=== PATIENT | male | born 1945 | race Caucasian/White ===

== ENCOUNTER 2020-03-07 23:41 | Inpatient (IN) | payer MEDICAID, MEDICARE ==
[2020-03-08 00:09] LABS: #Lymphocytes 1.2 thou/uL (1.20-3.40); #Monocytes 0.4 thou/uL (0.11-0.59); #Neutrophils 8.8 thou/uL (1.40-6.50); %Basophils 0.1 % (0.0-1.0); %Eosinophils 0.2 % (0.0-10.0); %Lymphocytes 11.7 % (21.0-51.0); %Monocytes 3.7 % (0.0-10.0); %Neutrophils 84.3 % (42.0-75.0); Hemoglobin 13.5 g/dL (14.0-18.0); Mean Corpuscular Hemoglobin 27.7 pg (27.0-31.0); Mean Corpuscular Volume 79.2 fL (78.0-98.0); Mean Platelet Volume 9.6 fL (7.4-10.4); Platelet Count 196 thou/uL (130-400); RBC Distribution Width 17.7 % (11.5-14.5); Red Blood Cell (RBC) Count 4.86 mill/uL (4.70-6.10); White Blood Cell (WBC) Count 10.5 thou/uL (4.8-10.8)
[2020-03-08 00:30] LABS: ALT (SGPT) 35 U/L (8-55); AST (SGOT) 49 U/L (5-34); Albumin 4.8 g/dL (3.4-4.8); Alkaline Phosphatase 69 U/L (40-110); Anion Gap 29 mmol/L (10-20); BUN (Urea Nitrogen) 26 mg/dL (8.4-25.7); Bilirubin, Total 0.5 mg/dL (0.2-1.2); Calc. Creatinine Clearance 0 mL/min (70-130); Calcium 10.2 mg/dL (7.8-10.44); Carbon Dioxide 13 mmol/L (23-31); Chloride 103 mmol/L (98-107); Estimated GFR-MDRD 30; Globulin 3.6 g/dL (2.4-3.5); Glucose 153 mg/dL (83-110); Potassium 6.3 mmol/L (3.5-5.1); Protein, Total 8.4 g/dL (5.8-8.1); Sodium 139 mmol/L (136-145)
[2020-03-08 00:43] LABS: Bilirubin Negative (Negative); Blood, Urine Negative (Negative); Clarity Clear (Clear); Glucose, Urine (Dipstick) Normal (Negative); Ketone, Urine Negative (Negative); Leukocyte Negative Leu/uL (Negative); Nitrite Negative (Negative); Protein, Urine (Dipstick) 20 mg/dL (Neg-Trace); Specific Gravity, Urine 1.018 (1.002-1.036); Urobilinogen Normal mg/dL (Less than 2)
[2020-03-08 02:31] LABS: Anion Gap 15 mmol/L (10-20); BUN (Urea Nitrogen) 27 mg/dL (8.4-25.7); Calc. Creatinine Clearance 0 mL/min (70-130); Calcium 9.3 mg/dL (7.8-10.44); Carbon Dioxide 23 mmol/L (23-31); Chloride 106 mmol/L (98-107); Estimated GFR-MDRD 38; Glucose 104 mg/dL (83-110); Potassium 5.1 mmol/L (3.5-5.1); Sodium 139 mmol/L (136-145)
[2020-03-08 03:59] VITALS: BMI 32.6
[2020-03-08] MEDS ORDERED: WATER IVPB SCH (04:00)
[2020-03-08] MEDS ORDERED: ACETYLCYSTEINE IVPB SCH (04:00)
[2020-03-08] MEDS ORDERED: DEXTROSE 5% IVPB SCH (04:00)
[2020-03-08] MEDS ORDERED: WATER IV SCH ×3 (04:30→09:30)
[2020-03-08] MEDS ORDERED: ACETYLCYSTEINE IV SCH ×3 (04:30→09:30)
[2020-03-08] MEDS ORDERED: DEXTROSE 5% IV SCH ×3 (04:30→09:30)
--- NOTE | 2020-03-08 04:43 | PDOC.FPRHP ---
- History of Present Illness Chief Complaint: AMS History of Present Illness: Patient is a 74 year old male with hx of HTN, CHF, CAD, seziures, opiod dependence and muscle spasms who presented to the ED via EMS from [facility] for AMS. Information was obtained from EMS and the patient's son. The patient reportedly fell this afternoon and EMS was called. He was found to be A&Ox4 with diaphoresis noted. Vital signs stable. Patient refused to be taken to the hospital. Around dinnertime, the patient was found to be confused and only knowing his name. EMS was called again and brought the patient to the ED. The son states he found empty pill boxes indicating the patient took all his home medications for the next 5 days. They are: Eliquis 2.5mg x 6, Duloxetine 60mg x 3, Tamsulosin 0.4mg x 3, Tylenol 500mg x 12, Baclofen 20mg x 18, Tizanidine 4mg x 3, Metoprolol 50mg x 6, Lasix 20mg x 3. Patient has a prior suicide attempt in 2018 via overdosing on his medications. Attempted to call [facility] for more information but was unable to speak with them. ED Course: The patient received 1L NS in the ED. Vital signs remained stable. Patient did not require supplemental oxygen. - Allergies/Adverse Reactions Allergies Allergy/AdvReac Type Severity Reaction Status Date / Time Penicillins Allergy Verified 11/28/19 14:25 - Home Medications Medication Instructions Recorded Confirmed Type Metoprolol Succinate 50 mg PO BID 03/25/17 03/08/20 History Apixaban [Eliquis] 2.5 mg PO DAILY 07/06/17 03/08/20 History HYDROcodone Bit/APAP 10/325 [[place]] 1 tab PO Q6H PRN tab 09/13/17 03/08/20 Rx Baclofen 40 mg PO TID PRN 03/08/20 03/08/20 History DULoxetine [Cymbalta] 60 mg PO DAILY 03/08/20 03/08/20 History Furosemide [Lasix] 20 mg PO DAILY 03/08/20 03/08/20 History Tamsulosin HCl [Flomax] 0.4 mg PO DAILY 03/08/20 03/08/20 History tiZANidine HCl [Tizanidine HCl] 4 mg PO HS PRN 03/08/20 03/08/20 History - History PMHx: HTN, CHF, CAD, seizures, opioid dependence, muscle spasms, chronic neck pain, chronic back pain, depression, hx suicide attempt via overdose (per chart review) PSHx: colon resection FHx: Unknown Social: Unknown - Review of Systems ROS unobtainable: due to mental status - Vital signs BP: [124/76] HR: [93] RR: [16] Tmax: [98.4] Pox: [97]% on [RA] Wt: [114.89kg] - Physical Exam Constitutional: NAD HEENT: normocephalic and atraumatic, PERRLA, MMM Neck: supple, trachea midline Chest: no lesions Heart: RRR, normal S1/S2, no murmurs/rubs/gallops, pulses present, no edema Lungs: CTAB, no respiratory distress, good air movement, no wheezing Abdomen: soft, bowel sounds present Musculoskeletal: normal structure, ROM grossly normal -Neurological: Sleepy but arousable. Repeats "ok" when asked questions. A&O x 0 Skin: no rash/lesions, no jaundice Heme/Lymphatic: no unusual bruising or bleeding, no purpura, no petechia FMR H&P: Results - Labs Result Diagrams: 03/08/20 15:06 03/08/20 15:06 Lab results: WBC 10.5 thou/uL (4.8-10.8) 03/07/20 23:48 Hgb 13.5 g/dL (14.0-18.0) L 03/07/20 23:48 Hct 38.5 % (42.0-52.0) L 03/07/20 23:48 MCV 79.2 fL (78.0-98.0) 03/07/20 23:48 Plt Count 196 thou/uL (130-400) 03/07/20 23:48 Neutrophils % 84.3 % (42.0-75.0) H 03/07/20 23:48 Sodium 139 mmol/L (136-145) 03/08/20 02:02 Potassium 5.1 mmol/L (3.5-5.1) 03/08/20 02:02 Chloride 106 mmol/L (98-107) 03/08/20 02:02 Carbon Dioxide 23 mmol/L (23-31) 03/08/20 02:02 BUN 27 mg/dL (8.4-25.7) H 03/08/20 02:02 Creatinine 1.75 mg/dL (0.7-1.3) H 03/08/20 02:02 Glucose 104 mg/dL (83-110) 03/08/20 02:02 Calcium 9.3 mg/dL (7.8-10.44) 03/08/20 02:02 Total Bilirubin 0.5 mg/dL (0.2-1.2) 03/07/20 23:48 AST 49 U/L (5-34) H 03/07/20 23:48 ALT 35 U/L (8-55) 03/07/20 23:48 Alkaline Phosphatase 69 U/L (40-110) 03/07/20 23:48 Serum Total Protein 8.4 g/dL (5.8-8.1) H 03/07/20 23:48 Albumin 4.8 g/dL (3.4-4.8) 03/07/20 23:48 Urine Ketones Negative mg/dL (Negative) 03/08/20 00:28 Urine Blood Negative (Negative) 03/08/20 00:28 Urine Nitrite Negative (Negative) 03/08/20 00:28 Ur Leukocyte Esterase Negative Edna/uL (Negative) 03/08/20 00:28 FMR H&P: A/P - Problem List (1) Hyperkalemia Current Visit: Yes Status: Acute Code(s): E87.5 - HYPERKALEMIA (2) KENDELL (acute kidney injury) Current Visit: Yes Status: Resolved Code(s): N17.9 - ACUTE KIDNEY FAILURE, UNSPECIFIED (3) Encephalopathy acute Current Visit: Yes Status: Resolved Code(s): G93.40 - ENCEPHALOPATHY, UNSPECIFIED (4) Seizure disorder Current Visit: Yes Status: Acute Code(s): G40.909 - EPILEPSY, UNSP, NOT INTRACTABLE, WITHOUT STATUS EPILEPTICUS (5) Muscle spasm Current Visit: Yes Status: Acute Code(s): M62.838 - OTHER MUSCLE SPASM (6) Opioid dependence Current Visit: Yes Status: Acute Code(s): F11.20 - OPIOID DEPENDENCE, UNCOMPLICATED (7) Depression Current Visit: No Status: Acute Code(s): F32.9 - MAJOR DEPRESSIVE DISORDER, SINGLE EPISODE, UNSPECIFIED (8) Diastolic congestive heart failure Current Visit: No Status: Acute Code(s): I50.30 - UNSPECIFIED DIASTOLIC ( CONGESTIVE) HEART FAILURE (9) Hypertension Current Visit: No Status: Chronic Code(s): I10 - ESSENTIAL (PRIMARY) HYPERTENSION - Plan 1. Acute metabolic encephalopathy 2/2 medication overdose Cause of overdose is likely intentional given the large quantity of medications taken and past history of suicide attempt via medication overdose. Patient has no reported history of dementia. Vital signs have remained stable. 1 L NS administered in the ED. Spoke with poison control regarding treatment recommendations. Will admit to tele inpatient. -Acetaminophen level -INR level -F/u repeat EKG -Vitals Q4H -Follow NAC protocol per pharmacy -Suicide precautions with sitter -[facility] evaluation when AMS improves -Hold all home meds 2. Acute kidney injury Creatinine initially 2.19. Improved to 1.75 after 1L NS. -F/u repeat CMP 3. Hyperkalemia K+ was initially 6.3, possibly related to hemolysis. Improved to 5.1 after 1L NS. -Resolved 4. HTN BP have remained stable. -Hold home medications 5. CAD -Hold home medications 6. CHF Caution with fluid resuscitation due to potential of fluid overload -Hold home medications 7. Seizure disorder -Hold home medication 8. Depression -Hold home medication 9. Muscle spasms -Hold home medication Code: Full PCP: [facility] Prophylaxis: SCDs Disposition: telemetry, inpatient FMR H&P: Upper Level - Plan Date/Time: 03/08/20 0432 Chris Ivey DO, have evaluated this patient and agree with findings/plan as outlined by [facility]. Pertinent changes/additions are listed here. 74 yo m w pmhx sig for htn, chf, depression At the time of our examination, pt is arousable to verbal stimulation, obeys commands, but is AOx0. Reports from the assisted living facility indicate he may have taken 5 days worth of his meds in an apparent overdose attempt, pt has apparently done this previously. Reportedly at his baseline AOx4 when he was seen earlier this evening. In the ED he was given 1L NS. EKG reveals mildly spiked T waves, no inversion or ST changes, tachycardia. K elevated at 6.3 down to 5.1, Cr at 2.1 down to 1.7 after L. otherwise labs wnl, imaging stable from prior exams. Metabolic encephalopathy, place sitter, npo until bss, poison control recs NAC protocol, monitor EKG. Hyperkalemia resolved after 1L. Will contact [facility] to eval when pt medically stable. Home meds suggest pt has hx of HF /edema, judicious use of fluids. Attempted to contact [facility] facility for further info was unsuccessful. Admit to tele inpatient for acute metabolic encephalopathy, ELOS>48. Addendum - Attending - Attending Attestation Date/Time: 03/08/20 9782 I personally evaluated the patient and discussed the management with Dr. Clancy I agree with the History, Examination, Assessment and Plan documented above with any addition or exceptions noted below - 74 year old male with hx of HTN, CHF, CAD, seziures, opioid dependence and muscle spasms who presented to the ED via EMS from [facility] for AMS. Information was obtained from EMS and the patient's son. The patient reportedly fell this afternoon and EMS was called. He was found to be A&Ox4 with diaphoresis noted. Vital signs stable. Patient refused to be taken to the hospital. Around dinnertime, the patient was found to be confused and only knowing his name. EMS was called again and brought the patient to the ED. The son states he found empty pill boxes indicating the patient took all his home medications for the next 5 days. They are: Eliquis 2.5mg x 6, Duloxetine 60mg x 3, Tamsulosin 0.4mg x 3, Tylenol 500mg x 12, Baclofen 20mg x 18, Tizanidine 4mg x 3, Metoprolol 50mg x 6, Lasix 20mg x 3. Patient has a prior suicide attempt in 2018 via overdosing on his medications. PMH/PSH/Meds/All reviewed from resident documentation as patient is unable to cooperate/answer questions. Afebrile VSS Exam repeated by me and agree with residnet's findings - patient arouses; mumbles unintelligibly, tremulous, agitated. Labs: WBC=10.0, H/H=12/35.9, plt= 187, Yj=194, K=4.5, BUN/Cr=26/1.64, Cqma=689, UDS-negative, CT brain-negative A/ P: 1) AMS- toxic metabolic encephalopathy- possible intentional multidrug overdose- tylenol level negative; will contact family and see if there is a h/o alcohol use to see if patient at risk for alcohol withdrawal. Will start ASE protocol. Will check ammonia level. Will contact poison control for further advice.
[2020-03-08 04:45] LABS: #Lymphocytes 1.5 thou/uL (1.20-3.40); #Monocytes 0.6 thou/uL (0.11-0.59); #Neutrophils 7.9 thou/uL (1.40-6.50); %Basophils 0.4 % (0.0-1.0); %Lymphocytes 14.7 % (21.0-51.0); %Monocytes 6.3 % (0.0-10.0); %Neutrophils 78.5 % (42.0-75.0); Mean Corpuscular HGB CONC 33.4 g/dL (32.0-36.0); Mean Corpuscular Hemoglobin 26.6 pg (27.0-31.0); Mean Corpuscular Volume 79.7 fL (78.0-98.0); Mean Platelet Volume 9.2 fL (7.4-10.4); Platelet Count 187 thou/uL (130-400); RBC Distribution Width 17.7 % (11.5-14.5)
[2020-03-08 05:07] LABS: ALT (SGPT) 28 U/L (8-55); AST (SGOT) 31 U/L (5-34); Acetaminophen Less than 6.0 mcg/mL (10.0-30.0); Albumin 4.3 g/dL (3.4-4.8); Alkaline Phosphatase 64 U/L (40-110); Anion Gap 18 mmol/L (10-20); BUN (Urea Nitrogen) 26 mg/dL (8.4-25.7); Bilirubin, Total 0.4 mg/dL (0.2-1.2); Calc. Creatinine Clearance 58 mL/min (70-130); Calcium 9.6 mg/dL (7.8-10.44); Carbon Dioxide 22 mmol/L (23-31); Chloride 106 mmol/L (98-107); Estimated GFR-MDRD 41; Globulin 2.9 g/dL (2.4-3.5); Glucose 105 mg/dL (83-110); Potassium 4.5 mmol/L (3.5-5.1); Protein, Total 7.2 g/dL (5.8-8.1); Sodium 141 mmol/L (136-145)
[2020-03-08] MEDS ORDERED: Ondansetron PF 4 MG/2 ML Vial IVP PRN (06:26)
[2020-03-08 07:23] LABS: INR-International Normal Ratio 1.3; Prothrombin Time 16.5 sec (12.0-14.7)
[2020-03-08] MEDS ORDERED: Sterile Water 10 ML VIAL FS PRN (08:39)
[2020-03-08] MEDS ORDERED: Ziprasidone 20 MG VIAL IM SCH (08:45)
--- NOTE | 2020-03-08 08:48 | CT ---
PRELIMINARY REPORT/[facility]/EMERGENCY AFTER HOURS PROCEDURE: EXAM: CT Head Without Intravenous Contrast. CLINICAL HISTORY: ROAMING HALLWAY, SITTING ON GROUND AOX1, NORMALLY AOX4 BFD RAN ON PT EARLIER FOR AMS, BUT WAS STILL A OX4 AND RELEASED TO SON. PT NOW MORE ALTERED TECHNIQUE: Axial computed tomography images of the head/brain without intravenous contrast. COMPARISON: None provided. FINDINGS: BRAIN: No acute intraparenchymal hemorrhage. No mass lesion. No CT evidence for acute territorial infarct. N o midline shift or extra-axial collection. Mild diffuse parenchymal volume loss with commensurate en largement of the CSF spaces. There is also paraventricular matter hypoattenuation suggesting microva scular ischemic changes. VENTRICLES: No hydrocephalus. ORBITS: The orbits are unremarkable. SINUSES AND MASTOIDS: The paranasal sinuses and mastoid air cells are clear. SOFT TISSUES: No significant facial or scalp soft tissue swelling evident. No radiopaque foreign body is seen. BONES: No acute skull fracture. IMPRESSION: No acute intracranial abnormality. ELECTRONICALLY SIGNED BY: Vinny Barcenas DO Mar 08, 2020 12:28:35 AM CDT This report is intended for review by the ordering physician only, in accordance of law. If you recei ve this report in error, please call [facility] at [phone]. FINAL REPORT EMERGENCY AFTER HOURS CT BRAIN: IMPRESSION: I agree with the preliminary report provided by [facility]. No evidence for intracranial hemorr [place] or mass effect. Comparison with 07/06/2017. POS: PROSPER
--- NOTE | 2020-03-08 09:04 | RAD ---
PORTABLE CHEST: DATE: 03/08/2020. PROVIDED CLINICAL HISTORY: Altered mental status. FINDINGS: Comparison 04/05/2018. Cardiac and mediastinal silhouette is unchanged in appearance. Large hiatal h ernia is redemonstrated. No focal consolidation, pleural fluid, or pneumothorax apparent. IMPRESSION: No evidence for an acute cardiopulmonary process. POS: PROSPER
[2020-03-08] MEDS ORDERED: Lorazepam 2 MG/ML VIAL SLOW IVP SCH (10:00)
[2020-03-08] MEDS ORDERED: Diazepam 10 MG/2 ML SYRINGE IVP PRN (13:36)
[2020-03-08 13:51] LABS: Amphetamine Not Detected (NotDetected); Barbiturates Screen Not Detected (NotDetected); Benzodiazepine Screen Not Detected (NotDetected); Cocaine Metabolite Screen Not Detected (NotDetected); Medtox Control Line Valid? VALID (VALID); Medtox Reader # READER 1; Methadone Not Detected (NotDetected); Methamphetamine Not Detected (NotDetected); Opiate Screen Not Detected (NotDetected); Oxycodone Screen Not Detected (NotDetected); Phencyclidine (PCP) Not Detected (NotDetected); THC/Cannabinoid Screen Not Detected (NotDetected); Tricyclic Screen Not Detected (NotDetected)
[2020-03-08] MEDS ORDERED: Multivitamins, Adult 10 ML in Sodium Chloride 0.9% 500 ML IV SCH (14:00)
[2020-03-08] MEDS ORDERED: Folic Acid 1 MG TAB PO SCH (14:00)
[2020-03-08] MEDS ORDERED: Thiamine HCl 200 MG/2 ML VIAL SLOW IVP SCH (14:00)
[2020-03-08 15:17] LABS: #Lymphocytes 1.7 thou/uL (1.20-3.40); #Monocytes 0.9 thou/uL (0.11-0.59); %Basophils 0.3 % (0.0-1.0); %Eosinophils 0.2 % (0.0-10.0); %Lymphocytes 14.6 % (21.0-51.0); %Neutrophils 76.9 % (42.0-75.0); Hemoglobin 12.1 g/dL (14.0-18.0); Mean Corpuscular HGB CONC 34.6 g/dL (32.0-36.0); Mean Corpuscular Hemoglobin 27.5 pg (27.0-31.0); Mean Corpuscular Volume 79.4 fL (78.0-98.0); Mean Platelet Volume 8.7 fL (7.4-10.4); Platelet Count 177 thou/uL (130-400); RBC Distribution Width 17.7 % (11.5-14.5); Red Blood Cell (RBC) Count 4.39 mill/uL (4.70-6.10); White Blood Cell (WBC) Count 11.7 thou/uL (4.8-10.8)
[2020-03-08 15:23] LABS: INR-International Normal Ratio 1.2; PTT 29.9 sec (22.9-36.1); Prothrombin Time 14.7 sec (12.0-14.7)
[2020-03-08 15:38] LABS: ALT (SGPT) 30 U/L (8-55); AST (SGOT) 56 U/L (5-34); Acetaminophen Less than 6.0 mcg/mL (10.0-30.0); Alkaline Phosphatase 55 U/L (40-110); Anion Gap 16 mmol/L (10-20); BUN (Urea Nitrogen) 22 mg/dL (8.4-25.7); Bilirubin, Total 0.7 mg/dL (0.2-1.2); Calc. Creatinine Clearance 78 mL/min (70-130); Calcium 8.9 mg/dL (7.8-10.44); Carbon Dioxide 25 mmol/L (23-31); Chloride 104 mmol/L (98-107); Estimated GFR-MDRD 58; Globulin 2.8 g/dL (2.4-3.5); Glucose 111 mg/dL (83-110); Potassium 3.6 mmol/L (3.5-5.1); Protein, Total 6.8 g/dL (5.8-8.1); Sodium 141 mmol/L (136-145)
--- NOTE | 2020-03-08 17:03 | PDOC.BPN ---
- Brief Progress Note Patient was started on ASE protocol today due to AMS, restlessness, tremor and suspected overdose. Unknown alcohol use. Alcohol level pending. Patient ASE score was 12 earlier this afternoon and diazepam 10mg IV was given at 1458. Patient started to have shallow breaths so nurse pulled back on the medication prior to giving all of it - she believes about 8mg went in. Patient had normal sats throughout this, he did become more somnolent. NO CODE was called. Patient was checked on immediately after event and again later in the afternoon. Around 1645 patient was sitting in bed, 2 point restraints, RR 24, HR 95, BP 131/69, O2 Sat 97% RA. Patient actually agitated in bed saying that his R middle finger was hurting. Sitter in the room saying that he was trying to constantly get out of bed still. Will continue to monitor patient's resp status closely. Discussed with nurse to call if ASE scores get high again. If patient starts to have decreased RR and low O2 sats, can give benzo reversal. Patient appeared stable at the time of exam.
[2020-03-08] MEDS ORDERED: Lorazepam 2 MG/ML VIAL SLOW IVP PRN ×2 (20:06→20:07)
[2020-03-09 04:47] LABS: #Eosinphils 0.1 thou/uL (0.0-0.7); #Lymphocytes 1.7 thou/uL (1.20-3.40); #Monocytes 0.7 thou/uL (0.11-0.59); #Neutrophils 5.6 thou/uL (1.40-6.50); %Basophils 0.3 % (0.0-1.0); %Eosinophils 0.7 % (0.0-10.0); %Monocytes 9.1 % (0.0-10.0); %Neutrophils 68.9 % (42.0-75.0); Hemoglobin 12.2 g/dL (14.0-18.0); Mean Corpuscular Hemoglobin 25.7 pg (27.0-31.0); Mean Corpuscular Volume 80.2 fL (78.0-98.0); Mean Platelet Volume 9.7 fL (7.4-10.4); Platelet Count 170 thou/uL (130-400); RBC Distribution Width 17.6 % (11.5-14.5); Red Blood Cell (RBC) Count 4.75 mill/uL (4.70-6.10); White Blood Cell (WBC) Count 8.2 thou/uL (4.8-10.8)
[2020-03-09 04:56] LABS: Anion Gap 14 mmol/L (10-20); BUN (Urea Nitrogen) 15 mg/dL (8.4-25.7); Calc. Creatinine Clearance 102 mL/min (70-130); Calcium 8.7 mg/dL (7.8-10.44); Carbon Dioxide 19 mmol/L (23-31); Chloride 110 mmol/L (98-107); Estimated GFR-MDRD 79; Glucose 118 mg/dL (83-110); Potassium 3.3 mmol/L (3.5-5.1); Sodium 140 mmol/L (136-145)
--- NOTE | 2020-03-09 05:08 | PDOC.FM ---
- Subjective Subjective: Patient is resting comfortably in bed. Per night nurse patient's ASE was 12 at 2120 on 03/08 and was given 0.05mg ativan, then he had preceding scores of 9 and 9 throughout the night .The patient all night was complaining of right arm pain and banging his arm on the bed. He told me that he took hydrocodone yesterday before he came in and was stumbling. He denies taking his other medications or trying to harm himself. Patient has no new complaints. - Objective Vital Signs & Weight: Vital Signs (12 hours) Temp Pulse Resp BP Pulse Ox 03/09/20 03:59 95 03/09/20 03:00 99.2 F 103 H 20 137/81 95 03/08/20 23:00 100.1 F H 115 H 20 132/82 93 L 03/08/20 19:42 94 L 03/08/20 19:00 98.6 F 103 H 18 154/74 H 94 L Weight Weight 103.3 kg I&O: 03/07/20 03/08/20 03/09/20 06:59 06:59 06:59 Intake Total 649.2 Balance 649.2 Result Diagrams: 03/09/20 04:16 03/09/20 04:16 Phys Exam - Physical Examination Constitutional: NAD Patient in arm restraints, resting comfortably HEENT: PERRLA, sclera anicteric Respiratory: clear to auscultation bilateral Cardiovascular: RRR Gastrointestinal: soft, no distention trace edema in LEs Neurological: non-focal, moves all 4 limbs Deviation from normal: AxO x 2 Skin: no rash, normal turgor Dx/Plan - Plan Plan: 1. Acute metabolic encephalopathy 2/2 medication overdose Cause of overdose is likely intentional given the large quantity of medications taken and past history of suicide attempt via medication overdose. Patient has no reported history of dementia and is lucid at baseline per son. Vital signs have remained stable. Spoke with poison control regarding treatment recommendations. -Acetaminophen level neg x2, ETOH neg, CT head normal -INR level neg x2 -Vitals Q4H -Suicide precautions with ALEXEI viveros consulted Patient intermittently agitated, per son this is normal from past overdoses -Will d/c ASE protocol, no Hx ETOH, will give ativan 1mg q4-6hrs if needed for agitation, ordered restraints removed today -continue to hold all home meds 2. Acute kidney injury, resolved Creatinine initially 2.19--> 1.75--> .93 -will continue to monitor 3. Hypokalemia K+ 4.5 --> 3.3 -patient mirza an initial hyperkalemia with a K+ of 6.3 which resolved - will give 40mEq KCl 4. Hyperchloremic metabolic acidosis - CL 110, CO2 19 - Bedside swallow study ordered, will stop NPO and encourage eating if cleared 5. HTN BP have remained stable. -Hold home medications 6. CAD -Hold home medications 7. CHF Caution with fluid resuscitation due to potential of fluid overload -Hold home medications 8. Seizure disorder -Hold home medication 9. Depression -MHMR consult ordered - Hold home medication 10. Muscle spasms -Hold home medication Code: Full PCP: [facility] Prophylaxis: SCDs Disposition: telemetry, inpatient Addendum - Attending - Attending Attestation Date/Time: 03/09/20 4255 I personally evaluated the patient and discussed the management with Dr. Cedeno I agree with the History, Examination, Assessment and Plan documented above with any addition or exceptions noted below. Patient is improving will undergo Mental health evaluation per MR. Will need to address consideration of DOT for daily medication dosing.
[2020-03-09] MEDS ORDERED: Diazepam 10 MG/2 ML SYRINGE IVP PRN (06:00)
[2020-03-09] MEDS ORDERED: Potassium Chloride 20 MEQ TAB PO SCH (07:30)
[2020-03-09] MEDS: Ibuprofen 200 MG TAB PO PRN ×3 (08:02→20:51)
[2020-03-09] MEDS ORDERED: Folic Acid 1 MG TAB PO SCH (09:00)
[2020-03-09] MEDS ORDERED: Multivit, Adult Inj 10 ML VIAL IV SCH (09:00)
[2020-03-09] MEDS ORDERED: Lorazepam 2 MG/ML VIAL IM PRN (11:20)
[2020-03-10 04:49] LABS: ALT (SGPT) 40 U/L (8-55); AST (SGOT) 85 U/L (5-34); Albumin 3.6 g/dL (3.4-4.8); Alkaline Phosphatase 55 U/L (40-110); Anion Gap 11 mmol/L (10-20); BUN (Urea Nitrogen) 17 mg/dL (8.4-25.7); Bilirubin, Total 0.6 mg/dL (0.2-1.2); Calc. Creatinine Clearance 112 mL/min (70-130); Calcium 8.6 mg/dL (7.8-10.44); Carbon Dioxide 23 mmol/L (23-31); Chloride 108 mmol/L (98-107); Estimated GFR-MDRD 87; Globulin 2.9 g/dL (2.4-3.5); Glucose 107 mg/dL (83-110); Potassium 3.4 mmol/L (3.5-5.1); Protein, Total 6.5 g/dL (5.8-8.1); Sodium 139 mmol/L (136-145)
[2020-03-10] MEDS: Ibuprofen 200 MG TAB PO PRN ×2 (04:53→21:50)
--- NOTE | 2020-03-10 05:16 | PDOC.FM ---
- Subjective Subjective: Resting comfortably in bed. Ready to leave. Is comfortable with going home with his son. No new complaints. - Objective MAR Reviewed: Yes Vital Signs & Weight: Vital Signs (12 hours) Temp Pulse Resp BP Pulse Ox 03/10/20 03:52 98.7 F 70 18 138/72 96 03/10/20 00:20 97 03/09/20 19:51 98.4 F 97 18 101/51 L 97 Weight Weight 105.052 kg I&O: 03/08/20 03/09/20 03/10/20 06:59 06:59 06:59 Intake Total 1499.2 480 Output Total 500 Balance 999.2 480 Result Diagrams: 03/09/20 04:16 03/10/20 04:05 Phys Exam - Physical Examination Constitutional: NAD HEENT: PERRLA, moist MMs Respiratory: clear to auscultation bilateral Cardiovascular: RRR Gastrointestinal: soft, non-tender Musculoskeletal: no edema Neurological: non-focal, moves all 4 limbs Psychiatric: A&O x 3 Skin: no rash, normal turgor Dx/Plan - Plan Plan: 1. Acute metabolic encephalopathy 2/2 medication overdose Cause of overdose is likely intentional given the large quantity of medications taken and past history of suicide attempt via medication overdose. Patient has no reported history of dementia and is lucid at baseline per son. Spoke with poison control regarding treatment recommendations. -Acetaminophen level neg x2, ETOH neg, CT head normal -INR level neg x2 -Vitals Q4H -Suicide precautions with sitter, MR consulted Patient intermittently agitated, per son this is normal from past overdoses -[facility]MR consulted yesterday 03/09: patient denying suicide attempt, created safety plan. They talked with the son and patient will be discharged to stay with son -will restart most home medications this morning 2. Acute kidney injury, resolved Creatinine initially 2.19--> 1.75--> .93, .86 -will continue to monitor 3. Hypokalemia K+ 4.5 --> 3.3 --> 3.4 -patient mirza an initial hyperkalemia with a K+ of 6.3 which resolved - gave 40mEq KCl 03/09, will give another today before d/c 4. Hyperchloremic metabolic acidosis, resolved - CL 108, 23 - Patient restarted on normal diet yesterday 03/09 5. HTN BP have remained stable. -restarted metoprolol 03/09 - will restart medications 6. CAD -will restart medications 7. CHF Caution with fluid resuscitation due to potential of fluid overload -will restart medications 8. Hx Seizure disorder -no home medications 9. Depression -[facility] consult ordered - will restart home medications 10. Muscle spasms - will restart Baclofen Code: Full PCP: [facility] Prophylaxis: SCDs Dispo: Home with son Disposition: telemetry, inpatient I have discussed the patient with Dr. Borrero. Addendum - Attending - Attending Attestation Date/Time: 03/10/20 5460 I personally evaluated the patient and discussed the management with Dr. Cedeno I agree with the History, Examination, Assessment and Plan documented above with any addition or exceptions noted below.
[2020-03-10] MEDS ORDERED: Potassium Chloride 20 MEQ TAB PO SCH (06:15)
--- NOTE | 2020-03-11 06:03 | PDOC.FM ---
- Subjective Subjective: No acute events overnight. Patient reports mild SOB at baseline but denies headache, chest pain, abdominal pain and edema. He recognizes that he took too many medications on 03/07 but states he did so to resolved his chronic neck pain. He denies suicidal or homicidal ideation. - Objective MAR Reviewed: Yes Vital Signs & Weight: Vital Signs (12 hours) Temp Pulse Resp BP BP Pulse Ox 03/11/20 04:25 98.6 F 65 18 145/70 H 97 03/10/20 20:35 98.4 F 86 16 128/75 97 Weight Weight 105.052 kg I&O: 03/09/20 03/10/20 03/11/20 06:59 06:59 06:59 Intake Total 1499.2 480 480 Output Total 500 300 Balance 999.2 480 180 Result Diagrams: 03/09/20 04:16 03/10/20 04:05 Phys Exam - Physical Examination Constitutional: NAD HEENT: PERRLA, moist MMs Neck: no nodes, supple Respiratory: no wheezing, clear to auscultation bilateral Cardiovascular: RRR, no significant murmur Gastrointestinal: soft, non-tender Musculoskeletal: no edema, pulses present Neurological: normal sensation, moves all 4 limbs Lymphatic: no nodes Psychiatric: normal affect, A&O x 3 Deviation from normal: Denies homocidal or suicidal ideation Skin: no rash, normal turgor Dx/Plan (1) Hyperkalemia Code(s): E87.5 - HYPERKALEMIA Status: Acute (2) KENDELL (acute kidney injury) Code(s): N17.9 - ACUTE KIDNEY FAILURE, UNSPECIFIED Status: Resolved (3) Encephalopathy acute Code(s): G93.40 - ENCEPHALOPATHY, UNSPECIFIED Status: Resolved (4) Seizure disorder Code(s): G40.909 - EPILEPSY, UNSP, NOT INTRACTABLE, WITHOUT STATUS EPILEPTICUS Status: Acute (5) Muscle spasm Code(s): M62.838 - OTHER MUSCLE SPASM Status: Acute (6) Opioid dependence Code(s): F11.20 - OPIOID DEPENDENCE, UNCOMPLICATED Status: Acute (7) Depression Code(s): F32.9 - MAJOR DEPRESSIVE DISORDER, SINGLE EPISODE, UNSPECIFIED Status : Acute (8) Diastolic congestive heart failure Code(s): I50.30 - UNSPECIFIED DIASTOLIC (CONGESTIVE) HEART FAILURE Status: Acute (9) Hypertension Code(s): I10 - ESSENTIAL (PRIMARY) HYPERTENSION Status: Chronic - Plan Plan: 1. Acute metabolic encephalopathy 2/2 medication overdose Cause of overdose likely intentional given the large quantity of medication and history of suicide attempts via medication overdose. Patient has no reported history of dementia and is aware at baseline per son. Poison control was consulted regarding treatment recommendations. Acetaminophen level x 2 and E[address] level [address]. [address] Head normal. INR level x 2 WNL. MR was consulted yesterday. They reported patient denied suicide attempt and could be discharged home. The son said he does not feel comfortable with the patient being discharged home with him and wants to be present during an evaluation. -Suicide precautions with sitting -[facility] will meet with the patient and son today for re-evaluation and placement discussion 2. Acute kidney injury, resolved Creatinine initially 2.19, now 0.86. -Continue to monitor 3. Hypokalemia, resolved K+ was 6.3 on admission. Most recent level was 3.4. -20 mEq K oral -Continue to monitor 4. Hyperchloremic metabolic acidosis, resolved Cl was 108 on admission. Most recent 23. -Patient on normal diet as tolerated 5. HTN BP has remained stable. -Continue home medication 6. CAD -Continue home medication 7. CHF Caution with fluid resuscitation due to potential of fluid overload -Continue home medication 8. Hx seizure disorder Patient does not take medication at home -Continue to monitor 9. Depression F/u with [facility] consult. -Continue home medication 10. Muscle spams -Continue Baclofen Code: Full PCP: [facility] PPX: SCDs Disposition: placement per [facility] Addendum - Attending - Attending Attestation Date/Time: 03/11/20 1210 I personally evaluated the patient and discussed the management with Dr. Clancy. I agree with the History, Examination, Assessment and Plan documented above with any addition or exceptions noted below. Patient stable for discharge. Awaiting discussions between CM, family, and [facility] regarding placement.
[2020-03-11] MEDS ORDERED: Apixaban 2.5 MG TAB PO SCH (09:00)
[2020-03-11] MEDS ORDERED: DULoxetine 60 MG CAP PO SCH ×2 (09:00→10:15)
[2020-03-11] MEDS ORDERED: Tamsulosin HCl 0.4 MG CAP PO SCH ×2 (09:00→10:15)
[2020-03-11] MEDS ORDERED: Furosemide 20 MG TAB PO SCH ×2 (09:00→10:15)
[2020-03-11] MEDS ORDERED: Potassium Chloride 20 MEQ TAB PO SCH (09:00)
[2020-03-11] MEDS ORDERED: BACLOFEN 40 MG PO PRN (09:09)
[2020-03-11] MEDS ORDERED: Baclofen 10 MG TAB PO PRN (09:15)
[2020-03-11 15:31] VITALS: BP 159/81; TEMP 98.7
--- NOTE | 2020-03-12 00:45 | DIS ---
DATE OF ADMISSION: 03/08/2020 DATE OF DISCHARGE: 03/11/2020 RESIDENT: Jolanta Clancy MD ADMITTING ATTENDING: Dr. Sissy Larsen MD DISCHARGE ATTENDING: Bud Espino MD CONSULTS: [facility]. PROCEDURES: None. PRIMARY DIAGNOSIS: Acute metabolic encephalopathy secondary to medication overdose. SECONDARY DIAGNOSES: 1. Acute kidney injury, resolved. 2. Hypokalemia, resolved. 3. Hyperchloremia, metabolic acidosis, resolved. 4. Hypertension. 5. Coronary artery disease. 6. Congestive heart failure. 7. History of seizure disorder. 8. Depression. 9. Muscle spasms. DISCHARGE MEDICATIONS: 1. Eliquis 2.5 mg p.o. daily. 2. Cymbalta 60 mg p.o. daily. 3. Lasix 20 mg p.o. daily. 4. Metoprolol succinate 50 mg p.o. b.i.d. 5. Flomax 0.4 mg p.o. daily. 6. Baclofen 40 mg p.o. t.i.d. p.r.n. Discontinued medications: Tizanidine 4 mg. HOSPITAL COURSE: The patient is a 74-year-old male with history of hypertension , CHF, CAD, seizures, opioid dependence, and muscle spasms, who presented to the ED via EMS from [facility] for altered mental status. Information was initially obtained from EMS and the patient's son. The patient called the ED and reported that he had found empty pill boxes indicating that the patient took all his home medications for the upcoming 5 days that included Eliquis, fluoxetine, tamsulosin, Tylenol, baclofen, tizanidine, metoprolol, and Lasix. The patient has a history of suicide attempt in the past via overdosing on medications. Vital signs remained stable in the ED and upon admission, Poison Control was called regarding treatment recommendation. Acetaminophen level was obtained and NAC protocol initiated. Once acetaminophen level came back negative, NAC protocol was discontinued. INR level was obtained which was within normal limits. EKG in the ED and repeat upon admission were within normal limits. Suicide precautions with a sitter were initiated and [facility] evaluation was obtained. Creatinine level was initially 2.19 that improved after normal saline. Potassium was initially 6.3, possibly due to hemolysis. It improved as well after 1 L of normal saline. Chloride was initially elevated at 108, also improved after normal saline. ETOH level was negative. CT head was completed due to a recent fall history and was normal. [facility] consulted with the son who stated that he felt comfortable with the patient being discharged to home with him for a few days with close followup with MR and PCP. The patient states he is not currently suicidal or homicidal. He is amenable with the plan. DISPOSITION: Guarded social situation. DISCHARGE INSTRUCTIONS: Location: Home with son and home health. Diet: Heart healthy. Activity: As tolerated. Followup: Follow up per [facility] recommendations. Also follow up with PCP in 3 to 5 days. Job ID: [id number]
[2020-03-12] MEDS ORDERED: Apixaban 5 MG TAB PO SCH (09:00)
== END 2020-03-11 18:36 | disposition home health service (06) | DRG 917 ==
LOC: ERS 23:41 → 2NO 03-08 02:07
PROVIDERS: ADMIT Family Medicine; ATTEND Family Medicine
DX: T45.512A Poisoning by anticoagulants, intentional self-harm, initial encounter (principal); G92 Toxic encephalopathy; R40.2222 Coma scale, best verbal response, incomprehensible words, at arrival to emergency department; N17.9 Acute kidney failure, unspecified; F11.20 Opioid dependence, uncomplicated; I50.32 Chronic diastolic (congestive) heart failure; E87.2 Acidosis; E87.6 Hypokalemia; E87.8 Other disorders of electrolyte and fluid balance, not elsewhere classified; I11.0 Hypertensive heart disease with heart failure; I25.10 Atherosclerotic heart disease of native coronary artery without angina pectoris; G40.909 Epilepsy, unspecified, not intractable, without status epilepticus; F32.9 Major depressive disorder, single episode, unspecified; M62.838 Other muscle spasm; R40.2352 Coma scale, best motor response, localizes pain, at arrival to emergency department; R40.2132 Coma scale, eyes open, to sound, at arrival to emergency department; G89.29 Other chronic pain; M54.9 Dorsalgia, unspecified; M54.2 Cervicalgia; E87.5 Hyperkalemia; T43.222A Poisoning by selective serotonin reuptake inhibitors, intentional self-harm, initial encounter; T44.6X2A Poisoning by alpha-adrenoreceptor antagonists, intentional self-harm, initial encounter; T39.1X2A Poisoning by 4-Aminophenol derivatives, intentional self-harm, initial encounter; T42.8X2A Poisoning by antiparkinsonism drugs and other central muscle-tone depressants, intentional self-harm, initial encounter; T44.7X2A Poisoning by beta-adrenoreceptor antagonists, intentional self-harm, initial encounter; T50.1X2A Poisoning by loop [high-ceiling] diuretics, intentional self-harm, initial encounter; Z90.49 Acquired absence of other specified parts of digestive tract; Z88.0 Allergy status to penicillin; Z79.899 Other long term (current) drug therapy; Z79.01 Long term (current) use of anticoagulants
CPT/HCPCS: 36415; 70450; 71045; 80048; 80053; 80306; 80307; 81003; 82140; 83735; 84484; 85025; 85610; 85730; 93005; J0132; J2060; J3360; J3411; J3486; J7030; J7070

== ENCOUNTER 2022-01-23 23:49 | Inpatient (IN) | payer MEDICARE, MEDICAID ==
[~2022-01-23 23:49] MED LIST: Iopamidol-370 76% 500 ML 1 ML ONE
[2022-01-24] MEDS ORDERED: Aspirin 325 MG TAB ONE (00:06)
[2022-01-24 00:28] LABS: #Basophils 0.1 thou/uL (0.0-0.2); #Eosinphils 0.2 thou/uL (0.0-0.7); #Lymphocytes 2.3 thou/uL (1.20-3.40); #Monocytes 0.4 thou/uL (0.11-0.59); #Neutrophils 3.2 thou/uL (1.40-6.50); %Basophils 0.9 % (0.0-1.0); %Lymphocytes 37.9 % (21.0-51.0); %Monocytes 6.1 % (0.0-10.0); %Neutrophils 52.3 % (42.0-75.0); Hemoglobin 9.2 g/dL (14.0-18.0); Mean Corpuscular HGB CONC 32.3 g/dL (32.0-36.0); Mean Corpuscular Hemoglobin 25.3 pg (27.0-31.0); Mean Corpuscular Volume 78.3 fL (78.0-98.0); Platelet Count 217 thou/uL (130-400); RBC Distribution Width 14.7 % (11.5-14.5); Red Blood Cell (RBC) Count 3.65 mill/uL (4.70-6.10)
[2022-01-24 00:44] LABS: INR-International Normal Ratio 1.2; Prothrombin Time 15.3 sec (12.0-14.7)
[2022-01-24 00:45] LABS: D-Dimer Test 0.9 *mcg/mL (0.27-0.43)
[2022-01-24 00:49] LABS: ALT (SGPT) 15 U/L (8-55); AST (SGOT) 14 U/L (5-34); Albumin 3.4 g/dL (3.4-4.8); Alkaline Phosphatase 69 U/L (40-110); Anion Gap 12 mmol/L (10-20); BUN (Urea Nitrogen) 23 mg/dL (8.4-25.7); Bilirubin, Total 0.3 mg/dL (0.2-1.2); Calc. Creatinine Clearance 0 mL/min (70-130); Calcium 8.5 mg/dL (7.8-10.44); Carbon Dioxide 19 mmol/L (23-31); Chloride 109 mmol/L (98-107); Globulin 2.4 g/dL (2.4-3.5); Glucose 172 mg/dL (83-110); Lipase 26 U/L (8-78); Potassium 3.8 mmol/L (3.5-5.1); Protein, Total 5.8 g/dL (5.8-8.1); Sodium 136 mmol/L (136-145)
[2022-01-24] MEDS ORDERED: Furosemide 20 MG/2 ML VIAL ONE (03:16)
[2022-01-24] MEDS ORDERED: Nitroglycerin 0.4 MG TAB (25 Tab Bottle) SL PRN (03:42)
[2022-01-24] MEDS ORDERED: Ondansetron PF 4 MG/2 ML Vial IVP PRN (03:42)
[2022-01-24] MEDS ORDERED: Acetaminophen 325 MG TAB PO PRN (03:42)
[2022-01-24 04:38] LABS: Troponin I Less than 0.010 ng/mL (< 0.028)
[2022-01-24 05:01] VITALS: BMI 36.5
[2022-01-24 06:27] LABS: SARS-CoV-2 NAA Rapid Test Not Detected (NotDetected)
[2022-01-24 07:19] LABS: Cardiac Risk 4.9 (Less than 4.5)
[2022-01-24 07:24] LABS: Troponin I Less than 0.010 ng/mL (< 0.028)
[2022-01-24] MEDS: Apixaban 2.5 MG TAB PO SCH ×2 (08:18→20:00)
[2022-01-24] MEDS: Furosemide 20 MG/2 ML VIAL SLOW IVP SCH (14:28)
[2022-01-25] MEDS ORDERED: hydrALAZINE 20 MG/ML VIAL SLOW IVP PRN (04:38)
[2022-01-25] MEDS: Furosemide 20 MG/2 ML VIAL SLOW IVP SCH ×2 (04:49→13:44)
[2022-01-25] MEDS: Baclofen 10 MG TAB PO PRN ×3 (04:55→20:02)
[2022-01-25 05:10] LABS: #Eosinphils 0.2 thou/uL (0.0-0.7); #Lymphocytes 2.3 thou/uL (1.20-3.40); #Monocytes 0.6 thou/uL (0.11-0.59); #Neutrophils 2.9 thou/uL (1.40-6.50); %Basophils 0.8 % (0.0-1.0); %Eosinophils 3.1 % (0.0-10.0); %Lymphocytes 37.7 % (21.0-51.0); %Neutrophils 48.4 % (42.0-75.0); Hemoglobin 11.3 g/dL (14.0-18.0); Mean Corpuscular HGB CONC 32.5 g/dL (32.0-36.0); Mean Corpuscular Hemoglobin 25.9 pg (27.0-31.0); Mean Corpuscular Volume 79.8 fL (78.0-98.0); Mean Platelet Volume 8.1 fL (7.4-10.4); Platelet Count 217 thou/uL (130-400); Red Blood Cell (RBC) Count 4.35 mill/uL (4.70-6.10); White Blood Cell (WBC) Count 6.1 thou/uL (4.8-10.8)
[2022-01-25 05:18] LABS: Anion Gap 13 mmol/L (10-20); BUN (Urea Nitrogen) 13 mg/dL (8.4-25.7); Calc. Creatinine Clearance 108 mL/min (70-130); Calcium 8.8 mg/dL (7.8-10.44); Carbon Dioxide 21 mmol/L (23-31); Chloride 110 mmol/L (98-107); Glucose 107 mg/dL (83-110); Sodium 140 mmol/L (136-145)
[2022-01-25] MEDS: Apixaban 2.5 MG TAB PO SCH ×2 (08:49→21:42)
[2022-01-25] MEDS: Rosuvastatin 10 MG TAB PO SCH (08:49)
[2022-01-25] MEDS: Tamsulosin HCl 0.4 MG CAP PO SCH (08:49)
[2022-01-25] MEDS: DULoxetine 60 MG CAP PO SCH (08:49)
[2022-01-25] MEDS ORDERED: Cyclobenzaprine 10 MG TAB PO SCH (09:30)
[2022-01-25] MEDS ORDERED: Pregabalin 25 MG CAP PO SCH (09:45)
[2022-01-25] MEDS: Pregabalin 25 MG CAP PO SCH (20:02)
[2022-01-26 04:33] LABS: #Eosinphils 0.2 thou/uL (0.0-0.7); #Monocytes 0.8 thou/uL (0.11-0.59); %Basophils 0.5 % (0.0-1.0); %Eosinophils 2.4 % (0.0-10.0); %Monocytes 9.7 % (0.0-10.0); %Neutrophils 62.4 % (42.0-75.0); Hemoglobin 11.8 g/dL (14.0-18.0); Mean Corpuscular Hemoglobin 25.2 pg (27.0-31.0); Mean Platelet Volume 8.1 fL (7.4-10.4); Platelet Count 258 thou/uL (130-400); RBC Distribution Width 15.2 % (11.5-14.5); Red Blood Cell (RBC) Count 4.67 mill/uL (4.70-6.10)
[2022-01-26 04:50] LABS: Anion Gap 15 mmol/L (10-20); BUN (Urea Nitrogen) 11 mg/dL (8.4-25.7); Calc. Creatinine Clearance 109 mL/min (70-130); Carbon Dioxide 21 mmol/L (23-31); Chloride 107 mmol/L (98-107); Glucose 113 mg/dL (83-110); Potassium 3.8 mmol/L (3.5-5.1); Sodium 139 mmol/L (136-145)
[2022-01-26] MEDS: Furosemide 20 MG/2 ML VIAL SLOW IVP SCH ×2 (06:06→13:28)
[2022-01-26] MEDS: Rosuvastatin 10 MG TAB PO SCH (09:29)
[2022-01-26] MEDS: Tamsulosin HCl 0.4 MG CAP PO SCH (09:29)
[2022-01-26] MEDS: Pregabalin 25 MG CAP PO SCH (09:29)
[2022-01-26] MEDS: Baclofen 10 MG TAB PO PRN (09:29)
[2022-01-26] MEDS: DULoxetine 60 MG CAP PO SCH (09:29)
[2022-01-26] MEDS: Apixaban 2.5 MG TAB PO SCH (09:32)
[2022-01-26 16:57] VITALS: BP 120/72; TEMP 98.7
== END 2022-01-26 17:11 | disposition home or self-care (01) | DRG 291 ==
LOC: ERS 23:49 → 2NO 01-24 02:32 → OBSVTOIN 01-26 12:49
PROVIDERS: ADMIT Internal Medicine; ATTEND Internal Medicine
DX: I11.0 Hypertensive heart disease with heart failure (principal); I50.33 Acute on chronic diastolic (congestive) heart failure; Z20.822 Contact with and (suspected) exposure to COVID-19; K44.9 Diaphragmatic hernia without obstruction or gangrene; G62.9 Polyneuropathy, unspecified; K80.20 Calculus of gallbladder without cholecystitis without obstruction; J84.10 Pulmonary fibrosis, unspecified; R07.89 Other chest pain; I08.1 Rheumatic disorders of both mitral and tricuspid valves; I25.10 Atherosclerotic heart disease of native coronary artery without angina pectoris; G40.909 Epilepsy, unspecified, not intractable, without status epilepticus; G89.29 Other chronic pain; M54.2 Cervicalgia; F32.A Depression, unspecified; Z96.641 Presence of right artificial hip joint; M54.9 Dorsalgia, unspecified; Z88.0 Allergy status to penicillin; Z86.718 Personal history of other venous thrombosis and embolism; Z79.01 Long term (current) use of anticoagulants; Z79.899 Other long term (current) drug therapy; Z90.49 Acquired absence of other specified parts of digestive tract; Z98.890 Other specified postprocedural states; Z82.49 Family history of ischemic heart disease and other diseases of the circulatory system
CPT/HCPCS: 36415; 71275; 78452; 80048; 80053; 80061; 83036; 83690; 83880; 84484; 85025; 85379; 85610; 85730; 93017; 93306; 94760; 96374; 96375; 96376; A9500; G0378; J0153; J0360; J1940; Q9967; U0002

== ENCOUNTER 2022-07-22 19:34 | Emergency (ER) | payer MEDICARE, MEDICAID ==
[2022-07-22 20:22] LABS: #Eosinphils 0.1 thou/uL (0.0-0.7); #Lymphocytes 2.5 thou/uL (1.20-3.40); #Monocytes 0.7 thou/uL (0.11-0.59); #Neutrophils 3.4 thou/uL (1.40-6.50); %Basophils 0.5 % (0.0-1.0); %Eosinophils 2.2 % (0.0-10.0); %Lymphocytes 36.9 % (21.0-51.0); %Monocytes 10.2 % (0.0-10.0); %Neutrophils 50.2 % (42.0-75.0); Hemoglobin 11.1 g/dL (14.0-18.0); Mean Corpuscular HGB CONC 32.3 g/dL (32.0-36.0); Mean Corpuscular Hemoglobin 24.7 pg (27.0-31.0); Mean Corpuscular Volume 76.3 fl (78.0-98.0); Mean Platelet Volume 9.5 fL (7.4-10.4); Platelet Count 247 10x3/uL (130-400); RBC Distribution Width 16.1 % (11.5-14.5); Red Blood Cell (RBC) Count 4.48 mill/uL (4.70-6.10); White Blood Cell (WBC) Count 6.8 10x3/uL (4.8-10.8)
[2022-07-22 20:42] LABS: ALT (SGPT) 15 U/L (8-55); AST (SGOT) 33 U/L (5-34); Albumin 3.8 g/dL (3.4-4.8); Alkaline Phosphatase 75 U/L (40-110); Anion Gap 15 mmol/L (10-20); BUN (Urea Nitrogen) 15 mg/dL (8.4-25.7); Bilirubin, Total 0.3 mg/dL (0.2-1.2); Calc. Creatinine Clearance 0 mL/min (70-130); Calcium 8.7 mg/dL (7.8-10.44); Carbon Dioxide 21 mmol/L (23-31); Chloride 109 mmol/L (98-107); Estimated GFR 88; Globulin 3.1 g/dL (2.4-3.5); Glucose 124 mg/dL (83-110); Lipase 54 U/L (8-78); Potassium 4.6 mmol/L (3.5-5.1); Protein, Total 6.9 g/dL (5.8-8.1); Sodium 140 mmol/L (136-145)
== END 2022-07-22 22:22 ==
LOC: ERS 19:34
DX: R07.9 Chest pain, unspecified (principal)
CPT/HCPCS: 71045; 80053; 83690; 84484; 85025; 93005

== ENCOUNTER 2022-11-15 16:17 | Inpatient (IN) | payer MEDICARE, MEDICAID ==
[~2022-11-15 16:17] MED LIST changes: +ISOVUE-370 76%-LOCM 1 ML ONE; -Iopamidol-370 76% 500 ML 1 ML ONE
[2022-11-15] MEDS ORDERED: cefTRIAXone\\ROCEPHIN 1 GM VIAL ONE (16:38)
[2022-11-15] MEDS ORDERED: Nitrofurantoin Macrocrystal 50 MG CAP PO SCH ×2 (17:00)
[2022-11-15 17:40] LABS: ALT (SGPT) 18 U/L (8-55); AST (SGOT) 25 U/L (5-34); Alkaline Phosphatase 71 U/L (40-110); Anion Gap 15 mmol/L (10-20); BUN (Urea Nitrogen) 12 mg/dL (8.4-25.7); Bilirubin, Total 0.5 mg/dL (0.2-1.2); Calc. Creatinine Clearance 0 mL/min (70-130); Calcium 9.2 mg/dL (7.8-10.44); Carbon Dioxide 22 mmol/L (23-31); Chloride 102 mmol/L (98-107); Estimated GFR 90; Globulin 2.9 g/dL (2.4-3.5); Glucose 116 mg/dL (83-110); Potassium 4.8 mmol/L (3.5-5.1); Protein, Total 6.9 g/dL (5.8-8.1); Sodium 134 mmol/L (136-145)
[2022-11-15] MEDS ORDERED: Ketorolac Tromethamine 30 MG/ML VIAL ONE (17:56)
[2022-11-15 17:59] LABS: #Eosinphils 0.1 thou/uL (0.0-0.7); #Lymphocytes 1.9 thou/uL (1.20-3.40); #Monocytes 0.7 thou/uL (0.11-0.59); #Neutrophils 5.8 thou/uL (1.40-6.50); %Basophils 0.3 % (0.0-1.0); %Eosinophils 0.7 % (0.0-10.0); %Lymphocytes 22.3 % (21.0-51.0); %Neutrophils 68.7 % (42.0-75.0); Hemoglobin 11.9 g/dL (14.0-18.0); Mean Corpuscular HGB CONC 33.3 g/dL (32.0-36.0); Mean Corpuscular Hemoglobin 26.3 pg (27.0-31.0); Mean Corpuscular Volume 79.1 fl (78.0-98.0); Platelet Count 205 10x3/uL (130-400); RBC Distribution Width 17.5 % (11.5-14.5); Red Blood Cell (RBC) Count 4.51 mill/uL (4.70-6.10); White Blood Cell (WBC) Count 8.4 10x3/uL (4.8-10.8)
[2022-11-15 19:30] LABS: Bacteria/HPF None Seen HPF (None Seen); Bilirubin Negative (Negative); Blood, Urine 1+ (Negative); Clarity Clear (Clear); Glucose, Urine (Dipstick) Normal (Negative); Ketone, Urine Negative (Negative); Leukocyte Negative Leu/uL (Negative); Nitrite Negative (Negative); Protein, Urine (Dipstick) Negative (Neg-Trace); RBC/HPF 0-3 HPF (0-3); Specific Gravity, Urine 1.007 (1.002-1.036); Squamous Epithelial None Seen HPF (0-3); Urobilinogen Normal mg/dL (Less than 2); WBC/HPF 0-3 HPF (0-3)
[2022-11-15] MEDS ORDERED: Morphine 4 MG/ML VIAL ONE (21:21)
[2022-11-15] MEDS ORDERED: Lidocaine Viscous Sol 2% 15 ml UD Cup ONE (21:22)
[2022-11-15] MEDS ORDERED: Vancomycin 1 GM/200 ML (FROZEN) BAG ONE (21:22)
[2022-11-15] MEDS ORDERED: Ondansetron PF 4 MG/2 ML Vial IVP PRN (21:39)
[2022-11-15] MEDS ORDERED: Acetaminophen 325 MG TAB PO PRN (21:39)
[2022-11-15 21:47] LABS: Lactic Acid 2.7 mmol/L (0.5-2.2)
[2022-11-16 02:26] VITALS: BMI 35.3
[2022-11-16 08:04] LABS: #Basophils 0.1 thou/uL (0.0-0.2); #Eosinphils 0.2 thou/uL (0.0-0.7); #Lymphocytes 2.1 thou/uL (1.20-3.40); #Monocytes 0.6 thou/uL (0.11-0.59); #Neutrophils 3.1 thou/uL (1.40-6.50); %Basophils 0.9 % (0.0-1.0); %Eosinophils 2.7 % (0.0-10.0); %Lymphocytes 34.7 % (21.0-51.0); %Monocytes 9.4 % (0.0-10.0); %Neutrophils 52.2 % (42.0-75.0); Hemoglobin 10.4 g/dL (14.0-18.0); Mean Corpuscular HGB CONC 32.7 g/dL (32.0-36.0); Mean Corpuscular Hemoglobin 26.5 pg (27.0-31.0); Mean Platelet Volume 8.8 fL (7.4-10.4); Platelet Count 174 10x3/uL (130-400); RBC Distribution Width 17.4 % (11.5-14.5); Red Blood Cell (RBC) Count 3.92 mill/uL (4.70-6.10); White Blood Cell (WBC) Count 5.9 10x3/uL (4.8-10.8)
[2022-11-16 08:26] LABS: Anion Gap 12 mmol/L (10-20); BUN (Urea Nitrogen) 9 mg/dL (8.4-25.7); Calc. Creatinine Clearance 126 mL/min (70-130); Carbon Dioxide 22 mmol/L (23-31); Chloride 109 mmol/L (98-107); Estimated GFR 94; Glucose 97 mg/dL (83-110); Sodium 139 mmol/L (136-145)
[2022-11-16] MEDS: Rosuvastatin 10 MG TAB PO SCH (08:52)
[2022-11-16] MEDS: DULoxetine 60 MG CAP PO SCH (08:52)
[2022-11-16] MEDS: Furosemide 20 MG TAB PO SCH (08:52)
[2022-11-16] MEDS ORDERED: FLU VACC QS2022-23(65YR UP)/PF 240 MCG/0.7 ML SYRINGE IM ONE (09:00)
[2022-11-16] MEDS ORDERED: Tamsulosin HCl 0.4 MG CAP PO SCH ×2 (09:00→18:00)
[2022-11-16] MEDS ORDERED: Rosuvastatin 10 MG TAB PO SCH (09:00)
[2022-11-16] MEDS ORDERED: Apixaban 2.5 MG TAB PO SCH (10:45)
[2022-11-16] MEDS ORDERED: Non-Formulary Item 1 EACH (Baclofen [Baclofen] 20 MG Tablet) PO PRN (13:48)
[2022-11-16] MEDS ORDERED: Baclofen 10 MG TAB PO PRN (13:50)
[2022-11-16] MEDS: Baclofen 10 MG TAB PO PRN ×2 (14:20→20:29)
[2022-11-16] MEDS ORDERED: cefTRIAXone\\ROCEPHIN 1 GM in Sodium Chloride 0.9% 100 ML IVPB SCH (17:00)
[2022-11-16] MEDS: Apixaban 2.5 MG TAB PO SCH (20:27)
[2022-11-16] MEDS ORDERED: Pregabalin 25 MG CAP PO SCH (21:00)
[2022-11-16] MEDS ORDERED: Apixaban 5 MG TAB PO SCH ×2 (21:00)
[2022-11-17] MEDS: Apixaban 2.5 MG TAB PO SCH (08:01)
[2022-11-17] MEDS: Rosuvastatin 10 MG TAB PO SCH (08:01)
[2022-11-17] MEDS: Furosemide 20 MG TAB PO SCH (08:01)
[2022-11-17] MEDS: DULoxetine 60 MG CAP PO SCH (08:01)
[2022-11-17 08:03] LABS: Hemoglobin 10.8 g/dL (14.0-18.0); Mean Corpuscular Volume 81.8 fl (78.0-98.0); Mean Platelet Volume 9.4 fL (7.4-10.4); Platelet Count 154 10x3/uL (130-400); Red Blood Cell (RBC) Count 4.01 mill/uL (4.70-6.10)
[2022-11-17] MEDS: Baclofen 10 MG TAB PO PRN ×2 (08:07→15:39)
[2022-11-17 08:10] LABS: Anion Gap 13 mmol/L (10-20); BUN (Urea Nitrogen) 9 mg/dL (8.4-25.7); Calc. Creatinine Clearance 128 mL/min (70-130); Calcium 8.8 mg/dL (7.8-10.44); Carbon Dioxide 21 mmol/L (23-31); Chloride 109 mmol/L (98-107); Estimated GFR 94; Glucose 100 mg/dL (83-110); Potassium 4.1 mmol/L (3.5-5.1); Sodium 139 mmol/L (136-145)
[2022-11-17] MEDS ORDERED: Tamsulosin HCl 0.4 MG CAP PO SCH (09:00)
[2022-11-17 10:15] LABS: Total PSA 0.5 ng/mL (0.0-4.0)
[2022-11-17 13:10] LABS: Eosinophils 1 % (0-10); Lymphocytes 46 % (21-51); MDiff Complete? YES; Monocytes 3 % (0-10); Neutrophil 49 % (42-75); Platelet Morphology Comment Appears Adequate; Polychromasia SLIGHT = 2-3 cells (100X) (0-2/hpf); Reactive Lymphocytes 1 % (0-10)
[2022-11-17 16:08] VITALS: BP 101/63; TEMP 98.2
== END 2022-11-17 16:41 | disposition home or self-care (01) | DRG 694 ==
LOC: ERS 16:17 → T4-B 21:42 → OBSVTOIN 11-16 13:14
PROVIDERS: ADMIT Internal Medicine; ATTEND Internal Medicine
DX: N13.1 Hydronephrosis with ureteral stricture, not elsewhere classified (principal); I50.32 Chronic diastolic (congestive) heart failure; E87.20 Acidosis, unspecified; Z20.822 Contact with and (suspected) exposure to COVID-19; I25.10 Atherosclerotic heart disease of native coronary artery without angina pectoris; I11.0 Hypertensive heart disease with heart failure; D64.9 Anemia, unspecified; G40.909 Epilepsy, unspecified, not intractable, without status epilepticus; G89.29 Other chronic pain; M54.2 Cervicalgia; R33.9 Retention of urine, unspecified; M54.9 Dorsalgia, unspecified; F32.A Depression, unspecified; K44.9 Diaphragmatic hernia without obstruction or gangrene; K80.20 Calculus of gallbladder without cholecystitis without obstruction; Z96.641 Presence of right artificial hip joint; K76.0 Fatty (change of) liver, not elsewhere classified; Z86.718 Personal history of other venous thrombosis and embolism; Z88.0 Allergy status to penicillin; Z79.899 Other long term (current) drug therapy; Z79.01 Long term (current) use of anticoagulants; Z90.49 Acquired absence of other specified parts of digestive tract; Z82.49 Family history of ischemic heart disease and other diseases of the circulatory system
CPT/HCPCS: 36415; 51702; 74177; 80048; 80053; 81003; 81015; 83605; 84153; 84154; 85025; 87040; 87086; 96365; 96366; 96367; 96375; G0378; J0696; J1885; J2270; J3370-JW; J3490; Q9966; U0003; U0005

== ENCOUNTER 2022-11-27 11:35 | Emergency (ER) | payer MEDICARE, MEDICAID ==
[2022-11-27 12:32] LABS: #Eosinphils 0.3 thou/uL (0.0-0.7); #Lymphocytes 1.9 thou/uL (1.20-3.40); #Monocytes 0.5 thou/uL (0.11-0.59); #Neutrophils 2.2 thou/uL (1.40-6.50); %Basophils 0.7 % (0.0-1.0); %Eosinophils 5.2 % (0.0-10.0); %Lymphocytes 38.7 % (21.0-51.0); %Monocytes 9.6 % (0.0-10.0); %Neutrophils 45.8 % (42.0-75.0); Hemoglobin 11.8 g/dL (14.0-18.0); Mean Corpuscular HGB CONC 31.5 g/dL (32.0-36.0); Mean Corpuscular Hemoglobin 26.5 pg (27.0-31.0); Mean Platelet Volume 8.4 fL (7.4-10.4); Platelet Count 221 10x3/uL (130-400); Red Blood Cell (RBC) Count 4.46 mill/uL (4.70-6.10); White Blood Cell (WBC) Count 4.9 10x3/uL (4.8-10.8)
[2022-11-27 12:41] LABS: Bilirubin Negative (Negative); Blood, Urine Negative (Negative); Clarity Clear (Clear); Glucose, Urine (Dipstick) Normal (Negative); Ketone, Urine Negative (Negative); Leukocyte Negative Leu/uL (Negative); Nitrite Negative (Negative); Protein, Urine (Dipstick) Negative (Neg-Trace); Specific Gravity, Urine 1.012 (1.002-1.036); Urobilinogen Normal mg/dL (Less than 2); pH, Urine 5.5 (5.0-9.0)
[2022-11-27 14:14] LABS: Anion Gap 14 mmol/L (10-20); BUN (Urea Nitrogen) 13 mg/dL (8.4-25.7); Calc. Creatinine Clearance 0 mL/min (70-130); Calcium 9.5 mg/dL (7.8-10.44); Carbon Dioxide 22 mmol/L (23-31); Chloride 108 mmol/L (98-107); Estimated GFR 92; Glucose 98 mg/dL (83-110); Potassium 4.8 mmol/L (3.5-5.1); Sodium 139 mmol/L (136-145)
== END 2022-11-27 15:01 | disposition home or self-care (01) ==
LOC: ERS 11:35
DX: R33.9 Retention of urine, unspecified (principal)
CPT/HCPCS: 36415; 51702; 80048; 81003; 85025

== ENCOUNTER 2023-01-14 08:37 | Outpatient (CLI) | payer MEDICARE, MEDICAID | END 2023-01-14 08:38 | disposition home or self-care (01) | LOC: NM 08:37 | PROVIDERS: ATTEND Urology | DX: C61 Malignant neoplasm of prostate (principal); M19.90 Unspecified osteoarthritis, unspecified site; M47.9 Spondylosis, unspecified | CPT/HCPCS: 78306; A9503 ==

== ENCOUNTER 2023-09-08 14:47 | Outpatient (CLI) | payer MEDICARE, MEDICAID ==
[2023-09-08 16:37] LABS: Hematocrit 40.5 % (38.8-50.0); Hemoglobin 13.3 g/dL (13.5-17.5); Mean Corpuscular HGB CONC 32.8 g/dL (32.0-36.0); Mean Corpuscular Hemoglobin 28.7 pg (27.0-33.0); Mean Corpuscular Volume 87.5 fl (81.2-95.1); Mean Platelet Volume 10.4 fl (7.4-10.4); Platelet Count 234 10x3/uL (150-450); RBC Distribution Width 14.6 % (11.5-14.5); Red Blood Cell (RBC) Count 4.63 10x6/uL (4.32-5.72); White Blood Cell (WBC) Count 7.6 10x3/uL (3.5-10.5)
[2023-09-08 16:46] LABS: PTT 29.9 sec (22.0-33.0); Prothrombin Time 10.6 sec (9.5-12.1)
[2023-09-08 16:55] LABS: Anion Gap 12 mmol/L (10-20); BUN (Urea Nitrogen) 13 mg/dL (8.4-25.7); Calc. Creatinine Clearance 0 mL/min (70-130); Calcium 9.1 mg/dL (7.8-10.44); Carbon Dioxide 27 mmol/L (23-31); Chloride 107 mmol/L (98-107); Estimated GFR 90; Glucose 123 mg/dL (83-110); Potassium 4.1 mmol/L (3.5-5.1); Sodium 142 mmol/L (136-145)
== END 2023-09-08 14:48 | disposition home or self-care (01) ==
LOC: LABBT 14:47
PROVIDERS: ATTEND Urology
DX: Z01.818 Encounter for other preprocedural examination (principal); N32.0 Bladder-neck obstruction; R33.9 Retention of urine, unspecified
CPT/HCPCS: 80048; 85027; 85610; 85730; 87077; 87086; 93005; 93010

== ENCOUNTER 2023-10-10 17:03 | Inpatient (IN) | payer MEDICARE, MEDICAID ==
[2023-10-10 18:16] LABS: Bacteria/HPF 2+ HPF (None Seen); Bilirubin Negative (Negative); Blood, Urine 3+ (Negative); CAUTI Indications for Culture Alt mental st,lethar; Calcium Oxalate Crystals Rare HPF (None Seen); Clarity Turbid (Clear); Glucose, Urine (Dipstick) Normal (Negative); Ketone, Urine Trace mg/dL (Negative); Leukocyte 500 Leu/uL (Negative); Nitrite Negative (Negative); Protein, Urine (Dipstick) 100 mg/dL (Neg-Trace); Specific Gravity, Urine 1.025 (1.002-1.036); Squamous Epithelial 0-3 HPF (0-3); Urobilinogen Normal mg/dL (Less than 2); pH, Urine 5.5 (5.0-9.0)
[2023-10-10 18:23] LABS: WBC/HPF 21-50 HPF (0-3)
[2023-10-10 18:24] LABS: Urine Culture Reflex Yes Yes
[2023-10-10 18:37] LABS: ALT (SGPT) 27 U/L (8-55); AST (SGOT) 52 U/L (5-34); Albumin 3.9 g/dL (3.4-4.8); Alkaline Phosphatase 66 U/L (40-110); Anion Gap 18 mmol/L (10-20); BUN (Urea Nitrogen) 19 mg/dL (8.4-25.7); Bilirubin, Total 0.6 mg/dL (0.2-1.2); CK (CPK) 1549 U/L (30-200); Calc. Creatinine Clearance 0 mL/min (70-130); Calcium 9.7 mg/dL (7.8-10.44); Carbon Dioxide 15 mmol/L (23-31); Chloride 114 mmol/L (98-107); Estimated GFR 55; Globulin 2.9 g/dL (2.4-3.5); Glucose 129 mg/dL (83-110); Lipase 23 U/L (8-78); Magnesium 1.9 mg/dL (1.6-2.6); Potassium 4.1 mmol/L (3.5-5.1); Protein, Total 6.8 g/dL (5.8-8.1); Sodium 143 mmol/L (136-145)
[2023-10-10] MEDS ORDERED: Sodium Chloride 0.9% 100 ML ONE (18:37)
[2023-10-10] MEDS ORDERED: cefTRIAXone (ROCEPHIN) 2 GM VIAL ONE (18:37)
[2023-10-10 19:15] LABS: #Monocytes 0.7 thou/uL (0.11-0.59); #Neutrophils 5.1 thou/uL (1.40-6.50); %Basophils 0.3 % (0.0-1.0); %Eosinophils 0.5 % (0.0-10.0); %Lymphocytes 19.6 % (21.0-51.0); %Monocytes 9.9 % (0.0-10.0); %Neutrophils 69.4 % (42.0-75.0); Hematocrit 37.9 % (42.0-52.0); Hemoglobin 12.7 g/dL (14.0-18.0); Mean Corpuscular HGB CONC 33.5 g/dL (32.0-36.0); Mean Corpuscular Volume 86.5 fl (78.0-98.0); Mean Platelet Volume 10.6 fL (7.4-10.4); Platelet Count 165 10x3/uL (130-400); RBC Distribution Width 14.2 % (11.5-14.5); Red Blood Cell (RBC) Count 4.38 mill/uL (4.70-6.10); White Blood Cell (WBC) Count 7.4 10x3/uL (4.8-10.8)
[2023-10-10 19:29] LABS: INR-International Normal Ratio 1.1; Prothrombin Time 14.2 sec (12.0-14.7)
[2023-10-10] MEDS ORDERED: Ziprasidone 20 MG VIAL ONE (19:39)
[2023-10-10] MEDS ORDERED: Sterile Water 10 ML ONE (19:40)
[2023-10-10 19:41] LABS: Troponin I Less than 0.010 ng/mL (< 0.028)
[2023-10-10] MEDS ORDERED: Ondansetron PF 4 MG/2 ML Vial IVP PRN (20:40)
[2023-10-10 21:01] LABS: Actual Bicarbonate (HCO3v) 18.2 mEq/L (22-28); Base Excess -3.7 mEq/L (-2.0 to +3.0); Calcium, Ionized (venous) 1.02 mmol/L (1.16-1.32); Chloride (VBG) 115 mmol/L (98-106); Hematocrit-VBG 38 % (42.0-52.0); Potassium (VBG) 4.33 mmol/L (3.70-5.30); Sodium 149 mmol/L (133-146); pH (venous) 7.479 (7.32-7.43)
[2023-10-10] MEDS: Lactated Ringer's 1,000 ML IV SCH (22:37)
[2023-10-10 22:40] LABS: Acetaminophen Less than 10 mcg/mL (10.0-30.0); Alcohol Less than 10.0 mg/dL (Less than 10); Salicylate Less than 8.0 mg/dL (15.0-30.0)
[2023-10-10 22:42] LABS: Amphetamine Not Detected (NotDetected); Barbiturates Screen Not Detected (NotDetected); Benzodiazepine Screen Not Detected (NotDetected); Cocaine Metabolite Screen Not Detected (NotDetected); Methadone Not Detected (NotDetected); Methamphetamine Not Detected (NotDetected); Opiate Screen Not Detected (NotDetected); Oxycodone Screen Not Detected (NotDetected); Phencyclidine (PCP) Not Detected (NotDetected); THC/Cannabinoid Screen Not Detected (NotDetected); Tricyclic Screen Not Detected (NotDetected)
[2023-10-11 00:05] LABS: Lactic Acid 1.2 mmol/L (0.5-2.2)
[2023-10-11] MEDS: Ziprasidone 20 MG VIAL IM SCH (02:38)
[2023-10-11] MEDS: Sterile Water 10 ML VIAL FS PRN (02:39)
[2023-10-11 04:47] LABS: #Eosinphils 0.1 thou/uL (0.0-0.7); #Monocytes 0.6 thou/uL (0.11-0.59); %Basophils 0.5 % (0.0-1.0); %Eosinophils 0.8 % (0.0-10.0); %Lymphocytes 22.6 % (21.0-51.0); %Monocytes 9.4 % (0.0-10.0); %Neutrophils 66.7 % (42.0-75.0); Hematocrit 33.1 % (42.0-52.0); Hemoglobin 10.9 g/dL (14.0-18.0); Mean Corpuscular HGB CONC 32.9 g/dL (32.0-36.0); Mean Corpuscular Hemoglobin 29.1 pg (27.0-31.0); Mean Corpuscular Volume 88.5 fl (78.0-98.0); Mean Platelet Volume 10.7 fL (7.4-10.4); Platelet Count 146 10x3/uL (130-400); RBC Distribution Width 14.4 % (11.5-14.5); Red Blood Cell (RBC) Count 3.74 mill/uL (4.70-6.10); White Blood Cell (WBC) Count 5.9 10x3/uL (4.8-10.8)
[2023-10-11 05:11] LABS: ALT (SGPT) 26 U/L (8-55); AST (SGOT) 52 U/L (5-34); Albumin 3.7 g/dL (3.4-4.8); Alkaline Phosphatase 63 U/L (40-110); Bilirubin, Direct 0.2 mg/dL (0.1-0.3); Bilirubin, Total 0.5 mg/dL (0.2-1.2); Protein, Total 5.8 g/dL (5.8-8.1)
[2023-10-11 05:14] LABS: Anion Gap 11 mmol/L (10-20); BUN (Urea Nitrogen) 16 mg/dL (8.4-25.7); CK (CPK) 1464 U/L (30-200); Calc. Creatinine Clearance 92 mL/min (70-130); Calcium 9.1 mg/dL (7.8-10.44); Carbon Dioxide 23 mmol/L (23-31); Chloride 117 mmol/L (98-107); Estimated GFR 86; Glucose 113 mg/dL (83-110); Potassium 3.4 mmol/L (3.5-5.1); Sodium 148 mmol/L (136-145)
[2023-10-11] MEDS: Lorazepam 2 MG/ML VIAL SLOW IVP SCH (08:19)
[2023-10-11] MEDS: Potassium Chloride 20 MEQ TAB PO SCH (08:20)
[2023-10-11] MEDS: Heparin 5,000 UNITS/ML VIAL SC SCH (08:20)
[2023-10-11] MEDS: Potassium Chloride 20 MEQ in Premix 1 BAG IVPB SCH (13:37)
[2023-10-11] MEDS: cefTRIAXone\\ROCEPHIN 2 GM in Sodium Chloride 0.9% 100 ML IVPB SCH (17:10)
[2023-10-12 06:07] LABS: #Monocytes 0.5 thou/uL (0.11-0.59); #Neutrophils 3.2 thou/uL (1.40-6.50); %Basophils 0.6 % (0.0-1.0); %Eosinophils 0.6 % (0.0-10.0); %Lymphocytes 26.9 % (21.0-51.0); %Monocytes 10.1 % (0.0-10.0); %Neutrophils 61.4 % (42.0-75.0); Hematocrit 31.7 % (42.0-52.0); Hemoglobin 10.4 g/dL (14.0-18.0); Mean Corpuscular HGB CONC 32.8 g/dL (32.0-36.0); Mean Corpuscular Hemoglobin 28.7 pg (27.0-31.0); Mean Corpuscular Volume 87.3 fl (78.0-98.0); Mean Platelet Volume 10.7 fL (7.4-10.4); Platelet Count 122 10x3/uL (130-400); RBC Distribution Width 14.5 % (11.5-14.5); Red Blood Cell (RBC) Count 3.63 mill/uL (4.70-6.10); White Blood Cell (WBC) Count 5.1 10x3/uL (4.8-10.8)
[2023-10-12 06:32] LABS: Anion Gap 12 mmol/L (10-20); BUN (Urea Nitrogen) 12 mg/dL (8.4-25.7); Calc. Creatinine Clearance 97 mL/min (70-130); Calcium 8.9 mg/dL (7.8-10.44); Carbon Dioxide 23 mmol/L (23-31); Chloride 115 mmol/L (98-107); Estimated GFR 89; Glucose 114 mg/dL (83-110); Potassium 3.7 mmol/L (3.5-5.1); Sodium 146 mmol/L (136-145)
[2023-10-12 06:56] LABS: CK (CPK) 6087 U/L (30-200)
[2023-10-12] MEDS: Thiamine HCl 200 MG/2 ML VIAL SLOW IVP SCH (12:37)
[2023-10-12] MEDS: Acetaminophen 325 MG TAB PO PRN (12:38)
[2023-10-12] MEDS: Lactated Ringer's 1,000 ML IV SCH (12:46)
[2023-10-12] MEDS: QUEtiapine 25 MG TAB PO SCH (21:24)
[2023-10-13 07:09] LABS: #Eosinphils 0.2 thou/uL (0.0-0.7); #Monocytes 0.5 thou/uL (0.11-0.59); #Neutrophils 3.3 thou/uL (1.40-6.50); %Basophils 0.5 % (0.0-1.0); %Eosinophils 3.8 % (0.0-10.0); %Lymphocytes 26.4 % (21.0-51.0); %Monocytes 8.5 % (0.0-10.0); %Neutrophils 60.4 % (42.0-75.0); Hematocrit 33.4 % (42.0-52.0); Mean Corpuscular HGB CONC 32.9 g/dL (32.0-36.0); Mean Corpuscular Hemoglobin 28.9 pg (27.0-31.0); Mean Corpuscular Volume 87.7 fl (78.0-98.0); Mean Platelet Volume 10.4 fL (7.4-10.4); Platelet Count 132 10x3/uL (130-400); RBC Distribution Width 14.6 % (11.5-14.5); Red Blood Cell (RBC) Count 3.81 mill/uL (4.70-6.10); White Blood Cell (WBC) Count 5.5 10x3/uL (4.8-10.8)
[2023-10-13 07:35] LABS: Anion Gap 13 mmol/L (10-20); BUN (Urea Nitrogen) 7 mg/dL (8.4-25.7); CK (CPK) 2339 U/L (30-200); Calc. Creatinine Clearance 126 mL/min (70-130); Calcium 8.4 mg/dL (7.8-10.44); Carbon Dioxide 21 mmol/L (23-31); Chloride 105 mmol/L (98-107); Estimated GFR 96; Glucose 89 mg/dL (83-110); Potassium 2.7 mmol/L (3.5-5.1); Sodium 136 mmol/L (136-145)
[2023-10-13] MEDS ORDERED: Electrolyte Replacement Protocol 1 EACH FS SCH (08:30)
[2023-10-13] MEDS ORDERED: Electrolyte Replacement Protocol FS PRN (08:30)
[2023-10-13 08:39] LABS: Magnesium 1.7 mg/dL (1.6-2.6)
[2023-10-13] MEDS: Multivitamin W/ Minerals 1 TAB PO SCH (08:53)
[2023-10-13] MEDS: Metoprolol Tartrate 25 MG TAB PO SCH (08:53)
[2023-10-13] MEDS: Potassium Chloride 20 MEQ TAB PO SCH (08:53)
[2023-10-13] MEDS: FLU VACC QS2023(65UP)/MF59C/PF 60 MCG/0.5 ML SYRINGE IM ONE (08:54)
[2023-10-13] MEDS: Folic Acid 1 MG TAB PO SCH (08:54)
[2023-10-13] MEDS: NS 0.9% w/ 40 MEQ KCL 1,000 ML IV SCH (09:08)
[2023-10-13] MEDS: Magnesium 2 GM/50 ML(in water) 2 GM in Premix 1 BAG IVPB SCH (10:54)
[2023-10-13] MEDS: Baclofen 10 MG TAB PO PRN (11:23)
[2023-10-13] MEDS: Amlodipine 5 MG TAB PO SCH (17:44)
[2023-10-13] MEDS: Rosuvastatin 10 MG TAB PO SCH (20:24)
[2023-10-13] MEDS ORDERED: Lorazepam 1 MG TAB PO PRN (20:40)
[2023-10-14 08:28] LABS: Anion Gap 13 mmol/L (10-20); BUN (Urea Nitrogen) 5 mg/dL (8.4-25.7); Calc. Creatinine Clearance 123 mL/min (70-130); Carbon Dioxide 23 mmol/L (23-31); Chloride 105 mmol/L (98-107); Potassium 3.9 mmol/L (3.5-5.1); Sodium 137 mmol/L (136-145)
[2023-10-14 08:29] LABS: Calcium 8.5 mg/dL (7.8-10.44); Estimated GFR 95; Glucose 125 mg/dL (83-110); Magnesium 1.8 mg/dL (1.6-2.6)
[2023-10-14] MEDS ORDERED: Metoprolol Tartrate 25 MG TAB PO SCH (09:00)
[2023-10-14] MEDS: Metoprolol Tartrate 50 MG TAB PO SCH (10:06)
[2023-10-14] MEDS: Amlodipine 5 MG TAB PO SCH (10:06)
[2023-10-14] MEDS: Enoxaparin 40 MG (0.4 mL) SYRINGE SC SCH (10:06)
[2023-10-14] MEDS: Multivit, Therapeutic 1 TAB PO SCH (10:06)
[2023-10-14] MEDS: Magnesium 2 GM/50 ML(in water) 2 GM in Premix 1 BAG IVPB SCH (11:25)
[2023-10-14] MEDS ORDERED: Lorazepam 1 MG TAB PO PRN (20:40)
[2023-10-15 07:23] LABS: Anion Gap 11 mmol/L (10-20); BUN (Urea Nitrogen) 6 mg/dL (8.4-25.7); Calc. Creatinine Clearance 121 mL/min (70-130); Calcium 8.7 mg/dL (7.8-10.44); Carbon Dioxide 23 mmol/L (23-31); Chloride 106 mmol/L (98-107); Estimated GFR 94; Glucose 101 mg/dL (83-110); Magnesium 2.1 mg/dL (1.6-2.6); Potassium 3.9 mmol/L (3.5-5.1); Sodium 136 mmol/L (136-145)
[2023-10-15] MEDS: Lorazepam 2 MG/ML VIAL SLOW IVP PRN (08:40)
[2023-10-15] MEDS: Apixaban 2.5 MG TAB PO SCH (21:16)
[2023-10-15] MEDS: Lorazepam 1 MG TAB PO PRN (23:34)
[2023-10-16 19:31] LABS: #Eosinphils 0.2 thou/uL (0.0-0.7); #Monocytes 0.7 thou/uL (0.11-0.59); #Neutrophils 2.7 thou/uL (1.40-6.50); %Basophils 0.4 % (0.0-1.0); %Eosinophils 3.4 % (0.0-10.0); %Lymphocytes 28.7 % (21.0-51.0); %Neutrophils 53.3 % (42.0-75.0); Hematocrit 40.9 % (42.0-52.0); Hemoglobin 13.7 g/dL (14.0-18.0); Mean Corpuscular HGB CONC 33.5 g/dL (32.0-36.0); Mean Corpuscular Volume 86.7 fl (78.0-98.0); Platelet Count 159 10x3/uL (130-400); RBC Distribution Width 14.2 % (11.5-14.5); Red Blood Cell (RBC) Count 4.72 mill/uL (4.70-6.10)
[2023-10-16 19:56] LABS: Anion Gap 16 mmol/L (10-20); BUN (Urea Nitrogen) 8 mg/dL (8.4-25.7); Calc. Creatinine Clearance 127 mL/min (70-130); Calcium 9.1 mg/dL (7.8-10.44); Carbon Dioxide 22 mmol/L (23-31); Chloride 105 mmol/L (98-107); Estimated GFR 96; Glucose 100 mg/dL (83-110); Potassium 3.9 mmol/L (3.5-5.1); Sodium 139 mmol/L (136-145)
[2023-10-16] MEDS ORDERED: Lorazepam 0.5 MG TAB PO PRN (20:40)
[2023-10-18] MEDS: Sodium Chloride 0.9% 500 ML IV SCH (00:44)
[2023-10-18] MEDS: Metoprolol Tartrate 25 MG TAB PO SCH (21:47)
[2023-10-18] MEDS: QUEtiapine 25 MG TAB PO SCH (21:47)
[2023-10-20] MEDS: Thiamine 100 MG TAB PO SCH (09:11)
[2023-10-21 03:55] VITALS: BMI 27.5
[2023-10-22] MEDS: traMADol HCl 50 MG TAB PO PRN (13:42)
[2023-10-22 16:32] LABS: SARS-CoV-2 NAA Rapid Test DETECTED (NotDetected)
[2023-10-22] MEDS: Ketorolac Tromethamine 30 MG (1 mL) VIAL IVP PRN (17:45)
[2023-10-22 18:37] LABS: #Eosinphils 0.1 thou/uL (0.0-0.7); #Monocytes 1.1 thou/uL (0.11-0.59); #Neutrophils 7.1 thou/uL (1.40-6.50); %Basophils 0.3 % (0.0-1.0); %Lymphocytes 21.5 % (21.0-51.0); %Monocytes 10.6 % (0.0-10.0); %Neutrophils 66.3 % (42.0-75.0); Hematocrit 35.8 % (42.0-52.0); Hemoglobin 12.2 g/dL (14.0-18.0); Mean Corpuscular HGB CONC 34.1 g/dL (32.0-36.0); Mean Corpuscular Hemoglobin 28.5 pg (27.0-31.0); Mean Corpuscular Volume 83.6 fl (78.0-98.0); Mean Platelet Volume 10.6 fL (7.4-10.4); Platelet Count 305 10x3/uL (130-400); RBC Distribution Width 13.4 % (11.5-14.5); Red Blood Cell (RBC) Count 4.28 mill/uL (4.70-6.10); White Blood Cell (WBC) Count 10.7 10x3/uL (4.8-10.8)
[2023-10-22 19:03] LABS: Anion Gap 13 mmol/L (10-20); BUN (Urea Nitrogen) 13 mg/dL (8.4-25.7); Calc. Creatinine Clearance 99 mL/min (70-130); Calcium 9.2 mg/dL (7.8-10.44); Carbon Dioxide 23 mmol/L (23-31); Chloride 100 mmol/L (98-107); Estimated GFR 91; Glucose 112 mg/dL (83-110); Potassium 3.8 mmol/L (3.5-5.1); Sodium 132 mmol/L (136-145)
[2023-10-22] MEDS: Cholecalciferol 1,000 UNITS (25 MCG) TAB PO SCH (21:51)
[2023-10-22] MEDS: NIRMATRELVIR 150 MG/RITONAVIR 100 MG PO SCH (21:52)
[2023-10-23 05:43] LABS: #Eosinphils 0.2 thou/uL (0.0-0.7); #Monocytes 0.8 thou/uL (0.11-0.59); #Neutrophils 6.1 thou/uL (1.40-6.50); %Basophils 0.3 % (0.0-1.0); %Eosinophils 2.1 % (0.0-10.0); %Lymphocytes 18.5 % (21.0-51.0); %Monocytes 8.9 % (0.0-10.0); %Neutrophils 69.9 % (42.0-75.0); Mean Corpuscular HGB CONC 34.3 g/dL (32.0-36.0); Mean Corpuscular Hemoglobin 29.1 pg (27.0-31.0); Mean Platelet Volume 10.4 fL (7.4-10.4); Platelet Count 289 10x3/uL (130-400); RBC Distribution Width 13.4 % (11.5-14.5); Red Blood Cell (RBC) Count 4.12 mill/uL (4.70-6.10); White Blood Cell (WBC) Count 8.7 10x3/uL (4.8-10.8)
[2023-10-23] MEDS: Ascorbic Acid 500 mg Chewable Tablet PO SCH (09:57)
[2023-10-23] MEDS: Zinc Sulfate 220 MG CAP PO SCH (09:58)
[2023-10-23] MEDS: Baclofen 10 MG TAB PO SCH ×2 (17:30→17:40)
[2023-10-25 15:56] VITALS: BP 109/72; TEMP 98.7
[2023-10-28] MEDS ORDERED: Rosuvastatin 10 MG TAB PO SCH (21:00)
[2023-10-28] MEDS ORDERED: QUEtiapine 25 MG TAB PO SCH (21:00)
== END 2023-10-25 18:04 | DRG 896 ==
LOC: EDBD 17:03 → ERS 17:03 → 2SE 20:39 → IMCU/EMU 10-11 05:22 → 2SE 10-11 05:25 → IMCU/EMU 10-11 06:42 → 2NO 10-14 15:48 → SURG A 10-15 14:58 → 2NO 10-15 15:19 → SURG A 10-15 16:24
PROVIDERS: ADMIT Internal Medicine; ATTEND Emergency Medicine
PROC: XW0DXF5 Introduction of Other New Technology Therapeutic Substance into Mouth and Pharynx, External Approach, New Technology Group 5 (ICD-10-PCS; principal; 2023-10-22)
PROC: 8E0ZXY6 Isolation (ICD-10-PCS; 2023-10-22)
DX: F10.239 Alcohol dependence with withdrawal, unspecified (principal); G93.41 Metabolic encephalopathy; U07.1 COVID-19; I50.32 Chronic diastolic (congestive) heart failure; N39.0 Urinary tract infection, site not specified; N17.9 Acute kidney failure, unspecified; E87.20 Acidosis, unspecified; T79.6XXA Traumatic ischemia of muscle, initial encounter; G89.29 Other chronic pain; Z96.641 Presence of right artificial hip joint; I11.0 Hypertensive heart disease with heart failure; E87.6 Hypokalemia; D64.9 Anemia, unspecified; W19.XXXA Unspecified fall, initial encounter; Z88.0 Allergy status to penicillin; Z85.46 Personal history of malignant neoplasm of prostate; Z79.01 Long term (current) use of anticoagulants; Z79.899 Other long term (current) drug therapy; Y92.89 Other specified places as the place of occurrence of the external cause
CPT/HCPCS: 0241U; 36415; 36416; 70450; 71045; 80048; 80053; 80076; 80306; 80307; 81001; 82550; 82805; 83605; 83690; 83735; 83880; 84100; 84145; 84484; 85025; 85610; 85730; 87040; 87086; 90471; 90694; 93005; 96361; 96365; 96372; G0008; J0696; J1644; J1650; J1885; J2060; J3411; J3475; J3480; J3486; J3490; J7030; J7120

== ENCOUNTER 2024-07-04 16:49 | Emergency (ER) | payer MEDICARE, MEDICAID ==
[2024-07-04] MEDS ORDERED: HYDROcodone/Acetaminophen 5/325 mg Tablet ONE (17:59)
== END 2024-07-04 19:29 | disposition home or self-care (01) ==
LOC: ERS 16:49
DX: S80.01XA Contusion of right knee, initial encounter (principal); W19.XXXA Unspecified fall, initial encounter
CPT/HCPCS: 99283; G0390